=== PATIENT | male | born 1930 | race Caucasian/White ===

== ENCOUNTER → 2017-10-12 | Outpatient (CLI) | payer MEDICARE | END | disposition home or self-care (01) | LOC: SHCH 12:42 | PROVIDERS: ATTEND Internal Medicine Cardiovascular Disease | DX: R09.89 Other specified symptoms and signs involving the circulatory and respiratory systems (principal); I65.23 Occlusion and stenosis of bilateral carotid arteries | CPT/HCPCS: 93880 ==

== ENCOUNTER 2017-11-09 13:00 | Emergency (ER) | payer MEDICARE, OTHER ==
[2017-11-09 14:17] LABS: EOSINOPHILS % (AUTO) 4.8 % (0.0-8.0); HEMATOCRIT 36.9 % (42-54); LYMPHOCYTES % (AUTO) 21.1 % (21.0-51.0); MEAN CORPUSCULAR HEMOGLOBIN 31.2 pg (27.0-33.0); MEAN CORPUSCULAR HGB CONC 33.9 g/dL (32.0-36.0); MEAN CORPUSCULAR VOLUME 91.9 fL (79-99); MONOCYTES % (AUTO) 8.7 % (3.0-13.0); NEUTROPHILS % (AUTO) 64.4 % (40.0-77.0); PLATELET COUNT (AUTO) 174 K/uL (130-400); RED BLOOD CELL COUNT(AUTO) 4.01 MIL/uL (4.50-6.20); RED CELL DISTRIBUTION WIDTH 13.9 % (11.0-15.5); WHITE BLOOD COUNT (AUTO) 8.6 K/uL (4.8-10.8)
[2017-11-09 14:27] LABS: CREATININE 1.2 mg/dL (0.5-1.5); POTASSIUM 4.1 mmol/L (3.5-5.1)
[2017-11-09 14:31] LABS: INR 0.96 (0.85-1.15); PARTIAL THROMBOPLASTIN TIME 28.9 SEC (26.3-35.5); PROTHROMBIN TIME 10.1 SEC (9.6-11.6)
== END 2017-11-09 15:30 | disposition home or self-care (01) ==
LOC: EDH 13:00
DX: L03.113 Cellulitis of right upper limb (principal); B95.62 Methicillin resistant Staphylococcus aureus infection as the cause of diseases classified elsewhere; E78.5 Hyperlipidemia, unspecified; I25.10 Atherosclerotic heart disease of native coronary artery without angina pectoris; C61 Malignant neoplasm of prostate; Z95.1 Presence of aortocoronary bypass graft; Z98.890 Other specified postprocedural states; Z88.8 Allergy status to other drugs, medicaments and biological substances
CPT/HCPCS: 36415; 80048; 85025; 85610; 85730; 93971

== ENCOUNTER 2018-08-30 09:51 | Emergency (ER) | payer MEDICARE ==
[2018-08-30 10:26] LABS: APPEARANCE,URINE Turbid (CLEAR); BILIRUBIN,URINE Negative (NEGATIVE); COLOR,URINE Dark Yellow (YELLOW); GLUCOSE, URINE (UA) Negative (NEGATIVE); KETONES,URINE Trace mg/dL (NEGATIVE); LEUKOCYTE ESTERASE ,URINE Large (NEGATIVE); NITRATE,URINE Negative (NEGATIVE); OCCULT BLOOD,URINE Large (NEGATIVE); PH,URINE 5.5 (5.0-8.0); PROTEIN,URINE 300 (NEGATIVE); UROBILINOGEN,URINE 0.2 mg/dL (0.2-1.0)
[2018-08-30 10:35] LABS: BACTERIA,URINE Rare /HPF (None Seen); WBC,URINE TNTC /HPF (0-1)
[2018-08-30 10:36] LABS: SQUAMOUS EPITHELIAL CELL,UR Rare /HPF (0-2)
[2018-08-30] MEDS ORDERED: CEFTRIAXONE SODIUM 1 GM ONE (10:58)
[2018-08-30] MEDS ORDERED: LIDOCAINE HCL-MPF 1% 2ML VIAL ONE (10:58)
== END 2018-08-30 11:24 | disposition home or self-care (01) ==
LOC: EDH 09:51
DX: N39.0 Urinary tract infection, site not specified (principal); I25.810 Atherosclerosis of coronary artery bypass graft(s) without angina pectoris; E78.5 Hyperlipidemia, unspecified; Z85.46 Personal history of malignant neoplasm of prostate
CPT/HCPCS: 81001; 96372; 99284; J0696; J3490

== ENCOUNTER 2018-12-29 08:48 | Day surgery (SDC) | payer MEDICARE ==
[2018-12-27 16:00] LABS: BASOPHILS % (AUTO) 0.8 % (0.0-5.0); EOSINOPHILS % (AUTO) 5.9 % (0.0-8.0); HEMATOCRIT 37.3 % (42-54); LYMPHOCYTES % (AUTO) 22.3 % (21.0-51.0); MEAN CORPUSCULAR HEMOGLOBIN 31.5 pg (27.0-33.0); MEAN CORPUSCULAR VOLUME 92.5 fL (79-99); MONOCYTES % (AUTO) 7.5 % (3.0-13.0); NEUTROPHILS % (AUTO) 63.5 % (40.0-77.0); PLATELET COUNT (AUTO) 180 K/uL (130-400); RED BLOOD CELL COUNT(AUTO) 4.03 MIL/uL (4.50-6.20); RED CELL DISTRIBUTION WIDTH 13.6 % (11.0-15.5); WHITE BLOOD COUNT (AUTO) 7.5 K/uL (4.8-10.8)
[2018-12-27 16:09] VITALS: BP 120/65
[2018-12-27 16:20] LABS: CREATININE 1.3 mg/dL (0.5-1.5); POTASSIUM 4.7 mmol/L (3.5-5.1)
--- NOTE | 2018-12-28 10:39 | NUR ---
CONSULT: DR. PINEDO NOTIFIED OF BUN: 25 AND CREAT: 1.3, NO ORDERS GIVEN. VIEWED EKG, OK TO PROCEED WITH SURGERY
[2018-12-29] VITALS (20 sets, daily range): BP systolic 128–146; BP diastolic 60–77
[~2018-12-29] VITALS: Ht 172.7 cm; Wt 87.9 kg
[~2018-12-29 08:48] MED LIST: ASPI-555 PO; CALC-960 PO; CEFTRIAXONE SODIUM 1 GM IVP ONE; CYAN100099 PO; DIPH25 PO; LACT1CAP58 PO; MULT-1258 PO; OLOP15OS OD; PANT20TA12 PO; POLY17PO4 PO; ROSU20TA23 PO; TAMS0.4C32 PO; TRAM50TA4 PO; UBID30CA11 PO; ZOLP5TAB2 PO
[2018-12-29] MEDS ORDERED: CEFTRIAXONE SODIUM 1 GM ONE (09:36)
[2018-12-29] MEDS ORDERED: LACTATED RINGERS 1000ML 1,000 ML IV ONE (09:37)
[2018-12-29] MEDS ORDERED: PROPOFOL 10 MG/ML 20ML VIAL IV ONE (12:01)
[2018-12-29] MEDS ORDERED: FENTANYL CITRATE PF 50 MCG/1 ML 2ML VIAL ONE (12:01)
[2018-12-29] MEDS ORDERED: LIDOCAINE PF 2% 5ML ABBOJECT ONE (12:01)
[2018-12-29] MEDS ORDERED: MEPERIDINE-PF 25 MG/ML SYG ONE ×2 (13:08→13:20)
[2018-12-29] MEDS ORDERED: PHENAZOPYRIDINE HCL 200 MG TABLET ONE (14:12)
--- NOTE | 2018-12-29 15:30 | NUR ---
NOTE PT AND SPOUSE HAVE BEEN INSTRUCTED ON LEG BAG EXCHANGE AND DRAINAGE BAG FOR THE NIGHT. THEY BOTH VERBALIZE UNDERSTANDING. THEY WERE GIVEN A NEW DRAINAGE BAG FOR HOME USE. URINE OUTPUT WAS DRAINING ORANGE UPON DISCHARGE.
[2018-12-29] MEDS ORDERED: ACETAMINOPHEN-CODEINE 300/30MG TAB PO ONE (15:40)
== END 2018-12-29 16:30 | disposition home or self-care (01) ==
LOC: DAH 08:48
PROVIDERS: ATTEND Urology
DX: N32.0 Bladder-neck obstruction (principal); N35.919 Unspecified urethral stricture, male, unspecified site; N30.40 Irradiation cystitis without hematuria; Z85.46 Personal history of malignant neoplasm of prostate; Z98.890 Other specified postprocedural states; K21.9 Gastro-esophageal reflux disease without esophagitis; I25.10 Atherosclerotic heart disease of native coronary artery without angina pectoris; Z79.899 Other long term (current) drug therapy; Z88.8 Allergy status to other drugs, medicaments and biological substances; Z87.891 Personal history of nicotine dependence
CPT/HCPCS: 36415; 52276; 80048; 85025; 93005; A4218; A4344; A4358; A4510; A4600; J0696; J2001; J2175 ×2; J2704; J3010; J7120 ×2